=== PATIENT | male | born 1995 | race Asian ===

== ENCOUNTER 2020-01-19 15:06 | Emergency (ER) | payer SELFPAY ==
--- NOTE | 2020-01-19 16:10 | CT ---
EXAMINATION: Max Facial Sinus wo Cont SEX: Male AGE: 24 years CLINICAL HISTORY: 24-year-old male complaining of dental pain (right molar, mandible); Abscess? Scan technique: Volume acquisition of data emergency unenhanced CT scan of the facial bones, paranasal sinuses and jaw (maxilla/mandible) obtained while patient was lying supine on the Siemens multislice scanner [place], [place]. All data archived in the PACS system for storage, reformatting axial/sagittal/coronal planes and study (bone/soft tissue windows). Interpretation: 1. Symmetric dental occlusion and normal appearing temporomandibular joints. 2. Normal-appearing maxillary and mandibular dentition. 3. No soft tissue swelling or subcutaneous emphysema right jaw. 4. No acute fracture. 5. No periodontal lucency or abscess identified in the mandible on the right. 6. Symmetric clear pneumatization of the paranasal (frontal, ethmoid, maxillary and sphenoid) sinuses. Mastoid sinuses likewise show no sign of inflammation or soft tissue tumor. Nasal septum straight midline. CONCLUSION: Negative exam.
--- NOTE | 2020-01-19 16:11 | EDM.PDOC ---
ED HPI GENERAL MEDICAL PROBLEM - General Chief Complaint: ENT Problem Stated Complaint: GUMS HURTING BOTTOM RIGHT Time Seen by Provider: 01/19/20 15:25 Source of Information: Reports: Patient, RN, RN Notes Reviewed History Limitations: Reports: No Limitations - History of Present Illness INITIAL COMMENTS - FREE TEXT/NARRATIVE: Patient presents to the ED via personal vehicle with complaints of pain to his right inferior molar. He reports the pain began this past Sunday (01/16/2020) and has progressively worsened over that time. He states the pain keeps him awake at night and makes mastication painful. He denies injury to the area. He denies fever, shaking chills, difficulty swallowing, cough, or shortness of breath. He does attest to a sore throat which began at the same time as the dental pain. He states he has been taking Motrin 400mg with no alleviation of symptoms. He states he has not been to a dentist as he does not have dental insurance. - Related Data Allergies Allergy/AdvReac Type Severity Reaction Status Date / Time No Known Allergies Allergy Verified 01/19/20 15:14 Home Meds: Home Meds . [No Known Home Meds] 01/19/20 [History] Past Medical History - Past Health History Medical/Surgical History: Denies Medical/Surgical History Social & Family History - Tobacco Use Tobacco Use Status *Q: Never Tobacco User ED ROS ENT - Review of Systems Review Of Systems: Comprehensive ROS is negative, except as noted in HPI. ED EXAM, ENT - Physical Exam Exam: See Below Exam Limited By: No Limitations General Appearance: Alert, WD/WN, No Apparent Distress Eye Exam: Bilateral Eye: EOMI, Normal Inspection, PERRL Ears: Normal External Exam, Normal Canal, Hearing Grossly Normal, Normal TMs Nose: Normal Inspection, Normal Mucousa, No Blood. No: Nasal Discharge, Nasal Swelling, Nasal Tenderness Mouth/Throat: Normal Teeth, Bleeding (To right inferior molar), Dental Pain, Dental Tenderness, Gum Swelling (Surrounding right inferior molar), Throat Pain. No: Dental Abcess, Dental Trauma, Oral Ulcers, Throat Swelling, Tongue Swelling, Tonsillar Erythema, Tonsillar Exudates, Tonsillar Swelling, Uvular Deviation, Uvular Edema Head: Atraumatic, Normocephalic Neck: Normal Inspection, Supple. No: Lymphadenopathy (L), Lymphadenopathy (R), Thyromegaly Respiratory/Chest: No Respiratory Distress, Lungs Clear, Normal Breath Sounds, No Accessory Muscle Use, Chest Non-Tender Cardiovascular: Normal Peripheral Pulses, Regular Rate, Rhythm, No Edema, No Gallop, No JVD, No Murmur, No Rub Neurological: Alert, Oriented, CN II-XII Intact, Normal Cognition, Normal Gait, No Motor/Sensory Deficits Psychiatric: Normal Affect, Normal Mood Skin: Warm, Dry, Intact, Normal Color, No Rash. No: Ecchymosis, Erythema, Mottled, Pallor, Petechiae Course - Vital Signs Last Recorded V/S: Last Vital Signs Temp 98.4 F 01/19/20 15:10 Pulse 63 01/19/20 15:10 Resp 16 01/19/20 15:10 BP 111/72 01/19/20 15:10 Pulse Ox 100 01/19/20 15:10 Departure - Departure Time of Disposition: 16:20 Disposition: Home, Self-Care 01 Condition: Good Clinical Impression: Pain, dental - Discharge Information *PRESCRIPTION DRUG MONITORING PROGRAM REVIEWED*: Not Applicable *COPY OF PRESCRIPTION DRUG MONITORING REPORT IN PATIENT YADY: Not Applicable Instructions: Acute Pain, Adult Forms: ED Department Discharge Additional Instructions: Rx: Magic Mouthwash Follow up with dentist regarding today's visit. Continue with ibuprofen (Advil/Motrin) 400mg every six hours, as pain persists. You may also take acetaminophen (Tylenol) 650mg every six hours, as pain persists. You may stagger these medications so you are taking a dose every three hours. Sepsis Event Note (ED) - Evaluation Sepsis Screening Result: No Definite Risk - Focused Exam Vital Signs: Vital Signs Temp Pulse Resp BP Pulse Ox 01/19/20 15:10 98.4 F 63 16 111/72 100
== END 2020-01-19 16:30 | disposition home or self-care (01) ==
LOC: DL.ED 15:06
DX: K08.89 Other specified disorders of teeth and supporting structures (principal)
CPT/HCPCS: 70486; 99283-25